=== PATIENT | male | born 1945 | race Caucasian/White ===

== ENCOUNTER 2017-05-05 03:08 | Emergency (ER) | payer MEDICARE, OTHER ==
[~2017-05-05] VITALS: Ht 180.3 cm; Wt 86.4 kg
[~2017-05-05 03:08] MED LIST: ALBU8.5H4 INHALATION; CALC-976 PO; CYAN1TAB17 PO; SIMV40TA5 PO
[2017-05-05 03:23] VITALS: BP 147/77; PULSE 81; RESP 16; O2SAT 98
--- NOTE | 2017-05-05 03:28 | ED.REPORT ---
HPI-Abd Pain M 40 and Over Date of Service May 05, 2017 ED Provider: Murtaza Gonzalez MD Pt is a 71 y/o male w/ a hx of diverticulitis, prostate CA s/p prostatectomy, presenting to the ED c/o LLQ abdominal pain with radiation to the left flank onset yesterday. 2 weeks ago he was experiencing pain in the LLQ which prompted a visit to his PCP 1 week later. 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 Last night at 21:00 he experienced a mild pain about his LLQ which radiated to the left flank and has persisted and worsened. He does have a history of diverticulitis. Pt denies hematuria, nausea, vomiting , fever, chills. The patient eventually adds to the history later in the visit that 4 years ago his labs showed an elevated PSA along with a PET scan with 4 hot spots. He hasn't been back for a follow-up regarding these findings since. Nursing Notes Stated Complaint: PAIN AROUND WAIST Chief Complaint: Male Abdominal Pain Nursing Notes Reviewed: Yes Allergies: Coded Allergies: No Known Allergies (Verified Allergy, Unknown, 07/01/15) Scheduled Cyanocobalamin/FA/Pyridoxine (Folbic Tablet) 1 Each Tablet 1 EACH PO DAILY Simvastatin (Simvastatin) 40 Mg Tablet 40 MG PO HS Scheduled PRN Albuterol HFA (Albuterol HFA) 8.5 Gm Hfa.aer.ad 2 PUFF INHALATION Q4H PRN PRN For Wheezing Calcium Carbonate/Vitamin D3 (Calcium 600 + D Tablet) 600 Mg-800 Tablet 1 EACH PO DIRECTED PRN PRN [facility] General Time Seen by MD: 03:24 Chief Complaint Abdominal pain Hx Obtained From: Patient Arrived By: Walk-in Sudden in Onset?: No Onset Occurred: Yesterday Symptom Duration: Since onset Progression since Onset: Constant, Gradually worsening Location: : LLQ Quality: Aching, Painful Radiation: : Flank left Severity: Current: Moderate Severity: Maximum: Moderate Similar Sx Previous: Yes Past Medical History Past Medical History Hx prostate CA s/p prostatectomy Hx diverticulitis Colon polyps Chronic cough Past Surgical History Prostatectomy Smoking History Former Smoker Social History Alcohol Use: 1-3 per day Drug Use: Denies drug use Ambulatory Status Independent Review of Systems Constitutional: Denies: Chills, Fever Respiratory: Denies: Non-productive cough, Shortness of breath Cardiovascular: Denies: Chest pain, Dyspnea on exertion GI: Reports: Abdominal pain, Denies: Nausea, Vomiting Male: Reports Flank pain, Denies Dysuria, Denies Hematuria Complete sys rev & neg: except as marked. Physical Exam Initial Vital Signs Vital Signs (First) Date Time Temp Pulse Resp B/P Pulse Ox O2 Delivery O2 Flow Rate FiO2 05/05/17 03:23 36.5 81 16 147/77 98 Room Air Initial VS: Reviewed, Vital signs normal Head / Eyes: Atraumatic, Normocephalic, PERRL ENT: Mucous membranes moist, Conjunctiva normal, No scleral icterus Neck: Supple, Full range of motion Extremities: Vascular intact, Neuro intact Skin: Warm, Dry, No cyanosis Neurologic: Alert, Oriented, Nonfocal Psychiatric: Mood/affect normal, Behavior normal, Normal thought content General/Constitutional: Awake, Alert, Cooperative, Not toxic appearing Distress / Hydration: Positive: Distress mild Respiratory / Chest: Breath sounds NL, Breath sounds = bilat, No respiratory distress, No rales, No rhonchi, No wheezing, No retractions, No stridor Cardiovascular: Heart rate NL, Regular rhythm, Heart sounds NL, No gallop, No murmurs, No rubs Trace pitting edema bilaterally Abdomen: Atraumatic, Soft, No guarding, No rebound, No distention, No palpable mass Tenderness/Guarding/Rebound: Positive: Tender LLQ... (Mild), Tender LUQ... ( Mild) Back: Full range of motion, Painless range of motion, No CVA tenderness Interpretation & Diagnostics Lab Results Interpretation Result Diagram: 05/05/17 0345 05/05/17 0345 Test 05/05/17 03:45 White Blood Count 6.7th/mm3 (3.8-10.1) Red Blood Count 4.77mil/mm3 (4.40-5.80) Hemoglobin 13.9g/dL (13.8-17.2) Hematocrit 42.7% (41.0-50.0) Mean Corpuscular Volume 89.5fL (81-100) Mean Corpuscular Hemoglobin 29.1pg (27.0-35.0) Mean Corpuscular Hemoglobin Concent 32.6% (32.0-37.0) Red Cell Distribution Width 14.6% (12.3-15.4) Platelet Count 256bil/L (150-400) Neutrophils (%) (Auto) 60.8% (40-74) Lymphocytes (%) (Auto) 17.1% (14-46) Monocytes (%) (Auto) 8.5% (4-12) Eosinophils (%) (Auto) 12.9% (0-5) Basophils (%) (Auto) 0.6% (0-3) Urine Color Yellow (YELLOW) Urine Appearance Hazy (CLEAR,HAZY) Urine pH 5.5 (5.0-8.0) Urine Specific [place] 1.023 (1.003-1.035) Urine Protein Tracemg/dL (NEG,TRACE) Urine Glucose (UA) Negativemg/dL (NEGATIVE) Urine Ketones Negativemg/dL (NEGATIVE) Urine Occult Blood Negative (NEGATIVE) Urine Nitrite Negative (NEGATIVE) Urine Bilirubin Negative (NEGATIVE) Urine Urobilinogen Normalmg/dL (NORMAL) Urine Leukocyte Esterase Negative (NEGATIVE) Urine RBC 0-2/hpf (0-2) Urine WBC 0-5/hpf (0-5) Urine Epithelial Cells Occasional/hpf (NONE-MOD) Urine Crystals None seen (NONE SEEN) Urine Bacteria Few/hpf (NONE-FEW) Urine Hyaline Casts Rare/lpf (NONE) Urine Granular Casts None seen (NONE SEEN) Urine Waxy Casts None seen (NONE SEEN) Urine Red Blood Cell Casts None seen (NONE SEEN) Urine White Blood Cell Casts None seen (NONE SEEN) Urine Mucus Present (None Seen) Urine Trichomonas None seen (NONE SEEN) Urine Yeast None (NONE SEEN) Urinalysis Comment None Urine Culture Reflexed Not indicated Sodium Level 139mEq/L (134-144) Potassium Level 4.5mEq/L (3.5-5.2) Chloride Level 103mEq/L (97-108) Carbon Dioxide Level 23mmol/L (18-29) Blood Urea Nitrogen 19mg/dL (8-27) Creatinine 1.31mg/dL (0.76-1.27) Estimat Glomerular Filtration Rate 57mL/min (>59) Glucose Level 100mg/dL (60-99) Calcium Level 9.5mg/dL (8.5-10.1) Magnesium Level 2.2mg/dL (1.6-2.6) Total Bilirubin 0.3mg/dL (0.0-1.2) Aspartate Amino Transf (AST/SGOT) 28U/L (0-50) Alanine Aminotransferase (ALT/SGPT) 21U/L (0-44) Alkaline Phosphatase 103U/L (25-160) Total Protein 7.1g/dL (6.4-8.4) Albumin 3.7g/dL (3.4-5.0) Lipase 54U/L (13-60) Lab values outside NL range: no clinical significance. CT Abd / Pelvis Interpretation Conclusion: 2.8 cm right adrenal lesion which cannot be characterized as a simple adrenal adenoma and therefore will require additional workup for clarification unless this has been previously documented as stable. There is extensive retroperitoneal adenopathy worrisome for an underlying malignancy possibly metastatic prostate cancer since the patient has had previous prostatectomy. Diverticulosis without CT evidence of diverticulitis. 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 He will be discharged home to follow up MARÍA ELENA with his cancer doctors in [place]. Time of Eval: 05:40 Patient Status: Moderate relief, Pain improved Re-Evaluation/Progress Note: Pt rechecked. Discussed imaging results and need for f/u for more extensive outpatient workup. Informed pt of plan for treatment. Pt understands and agrees with plan for treatment. F/U instructions and RTER warnings given. All questions addressed. Counseled Regarding: Diagnosis, Lab results, Need for follow-up, When/why to return to ED Discharge & Departure Primary Impression: Right adrenal mass Additional Impression: Intra-abdominal lymphadenopathy Disposition: Home Vital Signs - All Vital Signs Date Time Temp Pulse Resp B/P Pulse Ox O2 Delivery O2 Flow Rate FiO2 05/05/17 03:23 36.5 81 16 147/77 98 Room Air )( All Prior VS Reviewed: Yes Condition: Improved Patient Instructions: Prostate Cancer (DC) Additional Instructions: There is a right adrenal mass and multiple swollen lymph nodes in the back wall of the abdomen. These are all likely from metastatic prostate CA. Follow-up with your regular prostate cancer doctor in [place] as soon as possible for further evaluation and treatment. You can increase her dose of ibuprofen to 600 mg 3 or 4 times a day and take Tylenol along with it. Referrals: Ivan Campos DO (PCP) Slade Attestation Portions of this note were transcribed by Stanley Gomez. I, Dr. Gonzalez personally performed the history, physical exam and medical decision-making; I reviewed and confirmed the accuracy of the information in the transcribed note. Signed by Slade Ureña, 05/05/17 - 0400 copies to: Ivan Campos Howard L MD May 05, 2017 03:28 STANLEY GOMEZ May 05, 2017 03:35
[2017-05-05] MEDS ORDERED: 0.9% Sodium Chloride 1,000 ML IV ONE (03:33)
[2017-05-05] MEDS ORDERED: Ondansetron 2 mg/mL 2 mL Inj IVPUSH PRN (03:35)
[2017-05-05 04:04] LABS: BASOPHILS % (AUTO) 0.6 % (0-3); EOSINOPHILS % (AUTO) 12.9 % (0-5); MONOCYTES % (AUTO) 8.5 % (4-12); Mean Corpuscular Hemoglobin 29.1 pg (27.0-35.0); Mean Corpuscular Volume 89.5 fL (81-100); NEUTROPHILS % (AUTO) 60.8 % (40-74); Platelet Count 256 bil/L (150-400)
[2017-05-05 04:11] LABS: APPEARANCE,URINE HAZY (CLEAR,HAZY); COLOR,URINE YELLOW (YELLOW); OCCULT BLOOD,URINE NEGATIVE (NEGATIVE); PH,URINE 5.5 (5.0-8.0); UROBILINOGEN,URINE NORMAL (NORMAL)
[2017-05-05 04:33] LABS: Magnesium 2.2 mg/dL (1.6-2.6)
--- NOTE | 2017-05-05 10:45 | DRSVH ---
PROCEDURE: CT ABDOMEN AND PELVIS WITH CONTRAST ([id number]) INDICATIONS: LLQ pain TECHNIQUE: After the administration of intravenous contrast, 5 mm thick sections acquired from the diaphragm to the symphysis. 5 mm coronal and sagittal reformats were acquired. For radiation dose reduction, the following was used: automated exposure control, adjustment of mA and/or kV according to patient siz e. COMPARISON: None. FINDINGS: Image quality: Excellent. ABDOMEN: Lung bases: Lung bases are clear. Heart size is normal. Solid organs: Liver and spleen are normal in size. 4 mm focus of low attenuation in the posterior wi th no left hepatic lobe on series 2 image 14. Gallbladder is unremarkable. Biliary system is non dil ated. Pancreas enhances normally. There is a 29 mm AP by 23 mm transverse mass in the right adrenal gland. Kidneys demonstrate normal size and enhancement, without hydronephrosis. Peritoneum and bowel: Bowel loops are nonobstructed. There is a mild amount of thickening and strand ing surrounding the proximal small bowel with aortocaval adenopathy immediately posterior. Colonic di verticula are present. Nodes and vessels: There is extensive periaortic and aortocaval adenopathy at the level of the kidney s with areas of abnormal enhancement. Adenopathy extends into the region of the left psoas musculatur e. The largest node measures 28 mm in short axis. Aorta and inferior vena cava are normal in size. Miscellaneous: No ventral hernias. PELVIS: Genitourinary: Bladder wall thickness is normal. Clips are present in the region of the prostate gl and suggestive of prior prostatectomy. Miscellaneous: No inguinal hernias or adenopathy. Bones: No suspicious bony lesions. No vertebral body compression fractures. IMPRESSION: 1. Extensive aortocaval adenopathy as above. It is noted that there is thickening of the small bowel immediately anterior to the adenopathy with mesenteric fat stranding. The appearance of the small bow el and stranding could be a reactive secondary response to the adenopathy or vice versa. However, edgar plastic etiologies of adenopathy and right adrenal mass such as lymphoma or perhaps metastatic diseas e should also be strongly considered. Dictated by: Erum Woodruff M.D. on 05/05/2017 at 10:36 Approved by: Erum Woodruff M.D. on 05/05/2017 at 10:44
== END 2017-05-05 06:15 | disposition home or self-care (01) ==
LOC: SED 03:08
DX: E27.8 Other specified disorders of adrenal gland (principal); R59.0 Localized enlarged lymph nodes; Z90.79 Acquired absence of other genital organ(s); Z87.19 Personal history of other diseases of the digestive system; Z85.46 Personal history of malignant neoplasm of prostate; Z87.891 Personal history of nicotine dependence
CPT/HCPCS: 36415; 74177; 80053; 81000; 83690; 83735; 85025; 96361; 96374; 99285; J2405; J7030; Q9967

== ENCOUNTER 2017-06-08 14:31 | Emergency (ER) | payer MEDICARE, OTHER ==
[~2017-06-08] VITALS: Ht 180.3 cm; Wt 86.4 kg
[2017-06-08 14:43] VITALS: BP 127/81; PULSE 91; RESP 15; O2SAT 97
--- NOTE | 2017-06-08 15:20 | ED.REPORT ---
HPI- Male Date of Service Jun 08, 2017 ED Provider: History of Present Illness: blood in urine this am, now can not have any urination. has had issues previously, has had blood in urine occasionally last episode was in January. was being seen at [facility] by urology. was treated for prostrate cancer. went in today for a biospy at [facility]. appointment next for resilts. Was treated in 2009 for prostrate cancer. Also had radiation. Has been followed by urology for occasional bleeding. Reports was told it is from the radiation. Usually happens every 4 to 5 months and usually clears in 1 to 3 days. Nursing Notes Stated Complaint: CAN'T URINATE, PENIS CLOGGED WITH BLOOD Chief Complaint: Male Abdominal Pain Nursing Notes Reviewed: Yes Allergies: Coded Allergies: No Known Allergies (Verified Allergy, Unknown, 06/08/17) Scheduled Cyanocobalamin/FA/Pyridoxine (Folbic Tablet) 1 Each Tablet 1 EACH PO DAILY Simvastatin (Simvastatin) 40 Mg Tablet 40 MG PO HS Scheduled PRN Albuterol HFA (Albuterol HFA) 8.5 Gm Hfa.aer.ad 2 PUFF INHALATION Q4H PRN PRN For Wheezing Calcium Carbonate/Vitamin D3 (Calcium 600 + D Tablet) 600 Mg-800 Tablet 1 EACH PO DIRECTED PRN PRN [facility] General Time Seen by MD: 15:20 Chief Complaint Blood in urine, Urination decreased Hx Obtained From: Patient Onset Occurred: 9 - 12 hours ago Symptom Duration: Since onset Past Medical History Past Medical History Hx prostate CA s/p prostatectomy Hx diverticulitis Colon polyps Chronic cough Past Surgical History Prostatectomy biospy of enlarged lymph node on left neck/chest today 06/08/2017. REsults scheduled for 07/17/2017 Smoking History Former Smoker (quit in 1985) Social History Alcohol Use: 1-3 per day Drug Use: Denies drug use Other Social History: Ambulatory Status Independent Review of Systems Basic Review of Systems Eyes: Vision NL, No discharge Hematologic: No bleeding, No bruising Psychiatric: Normal thought content Physical Exam Initial Vital Signs Vital Signs (First) Date Time Temp Pulse Resp B/P Pulse Ox O2 Delivery O2 Flow Rate FiO2 06/08/17 14:43 36.9 91 15 127/81 97 Room Air Initial VS: Reviewed, Vital signs normal General/Constitutional: Well-developed, Well-nourished Head / Eyes: Atraumatic, Normocephalic, PERRL ENT: Mucous membranes moist, Conjunctiva normal, No scleral icterus Neck: Supple, Non-tender, Full range of motion Respiratory: Breath sounds normal, Clear to auscultation, No respiratory distress Cardiovascular: Regular rate & rhythm, Heart sounds normal, Intact distal pulses Abdomen / GI: Soft, Non-tender, No guarding, No rebound, No distention Back: No CVA tenderness Lymphatic: No lymphadenopathy Extremities: Vascular intact, Neuro intact, No swelling, No tenderness Skin: Warm, Dry, No cyanosis Neurologic: Alert, Oriented, Nonfocal Psychiatric: Mood/affect normal, Behavior normal, Normal thought content 500 cc out with blood, urine starts to clear after catheter is placed. General/Constitutional: Awake, Alert, No acute distress, Well appearing, Well developed, Well hydrated, Well nourished, Cooperative, Not toxic appearing Abdomen: Atraumatic, Soft, Non-tender, McBurney's non-tender, No guarding, No rebound, BS normoactive enlarged lymph nodes in neck and upper chest Interpretation & Diagnostics Lab Results Interpretation Result Diagram: 06/08/17 1647 06/08/17 1647 Test 06/08/17 16:28 06/08/17 16:47 Urine Color Bloody (YELLOW) Urine Appearance Turbid (CLEAR,HAZY) Urine pH 5.5 (5.0-8.0) Urine Specific [place] 1.010 (1.003-1.035) Urine Protein 100mg/dL (NEG,TRACE) Urine Glucose (UA) Negativemg/dL (NEGATIVE) Urine Ketones Negativemg/dL (NEGATIVE) Urine Occult Blood Large (NEGATIVE) Urine Nitrite Negative (NEGATIVE) Urine Bilirubin Negative (NEGATIVE) Urine Urobilinogen Normalmg/dL (NORMAL) Urine Leukocyte Esterase Negative (NEGATIVE) Urine RBC >50/hpf (0-2) Urine WBC 6-10/hpf (0-5) Urine Epithelial Cells Few/hpf (NONE-MOD) Urine Crystals Amorphous urates (NONE Urine Bacteria Few/hpf (NONE-FEW) Urine Hyaline Casts None/lpf (NONE) Urine Granular Casts None seen (NONE SEEN) Urine Waxy Casts None seen (NONE SEEN) Urine Red Blood Cell Casts None seen (NONE SEEN) Urine White Blood Cell Casts None seen (NONE SEEN) Urine Mucus None seen (None Seen) Urine Trichomonas None seen (NONE SEEN) Urine Yeast None (NONE SEEN) Urinalysis Comment None Urine Culture Reflexed Indicated White Blood Count 7.2th/mm3 (3.8-10.1) Red Blood Count 4.78mil/mm3 (4.40-5.80) Hemoglobin 14.1g/dL (13.8-17.2) Hematocrit 42.3% (41.0-50.0) Mean Corpuscular Volume 88.5fL (81-100) Mean Corpuscular Hemoglobin 29.5pg (27.0-35.0) Mean Corpuscular Hemoglobin Concent 33.3% (32.0-37.0) Red Cell Distribution Width 14.3% (12.3-15.4) Platelet Count 283bil/L (150-400) Neutrophils (%) (Auto) 70.9% (40-74) Lymphocytes (%) (Auto) 11.8% (14-46) Monocytes (%) (Auto) 8.8% (4-12) Eosinophils (%) (Auto) 8.1% (0-5) Basophils (%) (Auto) 0.3% (0-3) Sodium Level 142mEq/L (134-144) Potassium Level 4.7mEq/L (3.5-5.2) Chloride Level 103mEq/L (97-108) Carbon Dioxide Level 24mmol/L (18-29) Blood Urea Nitrogen 17mg/dL (8-27) Creatinine 1.01mg/dL (0.76-1.27) Estimat Glomerular Filtration Rate 78mL/min (>59) Glucose Level 87mg/dL (60-99) Calcium Level 9.8mg/dL (8.5-10.1) Total Bilirubin 0.5mg/dL (0.0-1.2) Aspartate Amino Transf (AST/SGOT) 29U/L (0-50) Alanine Aminotransferase (ALT/SGPT) 21U/L (0-44) Alkaline Phosphatase 111U/L (25-160) Total Protein 7.6g/dL (6.4-8.4) Albumin 4.0g/dL (3.4-5.0) Hold Dubose Top Tube Received (Received) Re-Eval/Medical Decision Med Decision/Clinical Course 71 year old male with hx of prostrate cancer with problems with urination starting today. Patient with prostrate cancer that was treated with radiation. He reports that since that treatment he will occasionally have blood in his urine every 4 to 5 months lasting 1 to 3 days. He has been seen in urology for this. Patient was seen on 05/05/[address] reveals likely cancer with mets. patient and his desire to follow at [place] as that is where they initially started. Discharge & Departure Impression: Primary Impression: Hematuria, gross Disposition: Home Patient Instructions: Hematuria (ED) Additional Instructions: You have had a catheter placed. Please call [place] [facility] and see if you can be seen next week when you get your biospy results. If you have any problems with the catheter, please return to the ER. Your labs are looking good. The urine does not show infection. but it is being cultured. A copy of your labs is being provided. Referrals: Ivan Campos DO (PCP) EDSupervising Provider for APC: Wilder Corley MD copies to: Ivan Campos Sue ARNP Jun 08, 2017 15:20
[2017-06-08 17:01] LABS: BASOPHILS % (AUTO) 0.3 % (0-3); EOSINOPHILS % (AUTO) 8.1 % (0-5); MONOCYTES % (AUTO) 8.8 % (4-12); Mean Corpuscular Hemoglobin 29.5 pg (27.0-35.0); Mean Corpuscular Volume 88.5 fL (81-100); NEUTROPHILS % (AUTO) 70.9 % (40-74); Platelet Count 283 bil/L (150-400)
[2017-06-08 17:10] LABS: APPEARANCE,URINE TURBID (CLEAR,HAZY); COLOR,URINE BLOODY (YELLOW); OCCULT BLOOD,URINE LARGE (NEGATIVE); PH,URINE 5.5 (5.0-8.0); UROBILINOGEN,URINE NORMAL (NORMAL)
[2017-06-08 18:08] VITALS: BP 134/81; PULSE 84; RESP 20; O2SAT 98
== END 2017-06-08 18:24 | disposition home or self-care (01) ==
LOC: SED 14:31
DX: R31.0 Gross hematuria (principal); Z87.891 Personal history of nicotine dependence; Z85.46 Personal history of malignant neoplasm of prostate

== ENCOUNTER 2017-06-08 23:57 | Emergency (ER) | payer MEDICARE, OTHER ==
[~2017-06-08] VITALS: Ht 180.3 cm; Wt 86.4 kg
--- NOTE | 2017-06-09 00:07 | ED.REPORT ---
HPI- Male Date of Service Jun 09, 2017 ED Provider: Jacky Reilly DO Patient is a 71 year old male with a history of prostate cancer who presents to the ED complaining that his catheter is not draining. The patient was seen yesterday in the ED due to having problems with urination and hematuria. A catheter was placed and the patient was discharged Nursing Notes Stated Complaint: CATHETER NOT DRAINING Chief Complaint: General Complaint Nursing Notes Reviewed: Yes Allergies: Coded Allergies: No Known Allergies (Verified Allergy, Unknown, 06/08/17) Scheduled Cyanocobalamin/FA/Pyridoxine (Folbic Tablet) 1 Each Tablet 1 EACH PO DAILY Simvastatin (Simvastatin) 40 Mg Tablet 40 MG PO HS Scheduled PRN Albuterol HFA (Albuterol HFA) 8.5 Gm Hfa.aer.ad 2 PUFF INHALATION Q4H PRN PRN For Wheezing Calcium Carbonate/Vitamin D3 (Calcium 600 + D Tablet) 600 Mg-800 Tablet 1 EACH PO DIRECTED PRN PRN [facility]INT General Time Seen by MD: 00:06 Chief Complaint Other (catheter not draining) Hx Obtained From: Patient Arrived By: Walk-in Onset Occurred: 1 - 4 hours ago Symptom Duration: Since onset Recent Healthcare: Recent doctor visit Similar Sx Previous: No Past Medical History Past Medical History Hx prostate CA s/p prostatectomy Hx diverticulitis Colon polyps Chronic cough Past Surgical History Prostatectomy biospy of enlarged lymph node on left neck/chest today 06/08/2017. REsults scheduled for 07/17/2017 Smoking History Former Smoker Social History Alcohol Use: 1-3 per day Drug Use: Denies drug use Other Social History: Ambulatory Status Independent Review of Systems Review of Systems Note: +catheter not draining Constitutional: Denies: Chills, Fever Male: Reports Hematuria, Reports Urination decreased Complete sys rev & neg: except as marked. Respiratory: Denies: Non-productive cough, Shortness of breath Physical Exam Initial Vital Signs Vital Signs (First) Date Time Temp Pulse Resp B/P Pulse Ox O2 Delivery O2 Flow Rate FiO2 06/09/17 00:11 36.8 79 18 132/79 96 Initial VS: Reviewed Male Genitourinary: Atraumatic, Inspection NL catheter in place and draining General/Constitutional: Awake, Alert Abdomen: Atraumatic, Soft, Non-tender Skin: Atraumatic, Color NL, No rash, Warm, Dry Head / Eyes: Atraumatic, Normocephalic, PERRL, EOMI Respiratory / Chest: Atraumatic, Breath sounds NL, Breath sounds = bilat, No respiratory distress Cardiovascular: Heart rate NL, Regular rhythm, Heart sounds NL Neurologic: Oriented X3, Speech NL Psychiatric: Affect NL, Mood NL Re-Eval/Medical Decision Med Decision/Clinical Course catheter replaced and flushed. Urine free flowing. Bladder scan shows empty bladder. Will rx with PO cipro and have urology follow up as soon as possible. Re-Evaluation/Progress : Time of Eval: 01:25 Re-Evaluation/Progress Note: Discussed plan for antibiotics and discahrge. Counseled Regarding: Diagnosis, Lab results, Need for follow-up, When/why to return to ED Discharge & Departure Impression: Primary Impression: Catheter (urine) change required Disposition: Home Discharge Condition All VS Reviewed: Yes Condition: Stable Patient Instructions: Saeed Catheter Insertion (ED) Additional Instructions: The catheter is back in place and is draining. Take the antibiotic Cipro 2x a day for 5 days. Plan to keep your follow up appointment with [facility]. Return to the emergency department if you develop any new or concerning symptoms. Referrals: Ivan Campos DO (PCP) Slade Attestation Portions of this note were transcribed by Machelle Beck. I, Dr. Reilly personally performed the history, physical exam and medical decision-making; I reviewed and confirmed the accuracy of the information in the transcribed note. Signed by: Slade Alvarado, 06/08/17 copies to: Ivan Campos Todd P DO Jun 09, 2017 00:07 Mirella Beck Jun 09, 2017 00:24
[2017-06-09 00:11] VITALS: BP 132/79; PULSE 79; RESP 18; O2SAT 96
[2017-06-09 01:46] VITALS: BP 128/82; PULSE 76; RESP 20; O2SAT 98
== END 2017-06-09 02:01 | disposition home or self-care (01) ==
LOC: SED 23:57
DX: T83.091A Other mechanical complication of indwelling urethral catheter, initial encounter (principal); Y84.6 Urinary catheterization as the cause of abnormal reaction of the patient, or of later complication, without mention of misadventure at the time of the procedure; Y93.89 Activity, other specified; Y92.89 Other specified places as the place of occurrence of the external cause; Y99.8 Other external cause status; Z87.891 Personal history of nicotine dependence